=== PATIENT | female | born 1955 | race Caucasian/White ===

== ENCOUNTER 2017-02-21 10:08 | Inpatient (IN) ==
[2017-02-21] MEDS ORDERED: SODIUM CHLORIDE 0.9% 2,000 ML IV STA (10:33)
[2017-02-21] MEDS ORDERED: ONDANSETRON 4 MG/2 ML VIAL IV STA (10:33)
[2017-02-21] MEDS ORDERED: PANTOPRAZOLE INJ 80 MG in SODIUM CHLORIDE 0.9% 100 ML IV STA (10:33)
[2017-02-21 10:56] LABS: Basophils % 0.1 % (0.0-0.8); Eosinophils # 0.1 10*3/uL (0.0-0.87); Eosinophils % 0.9 % (0.00-10.9); Hematocrit 21.3 VOL% (35.7-47.0); Immature Granulocytes % 0.9 %; Immature Granulocytes Absolute 0.08 #; Lymphocytes # 1.7 10*3/uL (1.4-4.0); Lymphocytes % 19.6 % (21.3-54.2); Mean Corpuscular HGB Conc 32.9 GM/DL (32-36); Mean Corpuscular Hemoglobin 28 PG (27-34); Mean Corpuscular Volume 85.5 FL (87-102); Mean Platelet Volume 10.3 FL (9.6-12.0); Monocytes # 0.5 10*3/uL (0.11-0.8); Monocytes % 5.4 % (1.7-12.7); NRBC # 0.05 10*3/uL; Neutrophils # 6.4 10*3/uL (1.4-7.4); Neutrophils % 73.1 % (38.7-73.9); Platelet Count 298 T/CUMM (130-400); Red Blood Count 2.49 MC/CUMM (3.8-5.5); Red Cell Distribution Width 15.4 % (9.3-17.3); White Blood Count 8.7 T/CUMM (4-12)
[2017-02-21] MEDS ORDERED: SODIUM CHLORIDE 0.9% 1,000 ML IV PRN (11:02)
[2017-02-21] MEDS ORDERED: PANTOPRAZOLE 40 MG VIAL IV ONE (11:15)
[2017-02-21] MEDS ORDERED: ONDANSETRON 4 MG/2 ML VIAL ONE (11:16)
[2017-02-21 11:19] LABS: Band Neutrophils 2 % (0-10); Hypochromasia 2+; Lymphocytes 22 % (20-55); Macrocytosis 1+; Platelet Estimate Adequate; Polychromasia Slight; Segmented Neutrophils 75 % (50-85); Target Cells Slight; Total Cells Counted 100
[2017-02-21 11:30] LABS: Albumin 3.2 G/DL (3.4-5.0); Bilirubin,Total 0.4 MG/DL (0.2-1.0); Calcium 8.1 MG/DL (8.5-10.1); Osmolality,Calculated 275.1 MOS/KG (273-304); Potassium 3.4 MMOL/L (3.5-5.1); Total Protein 6.2 G/DL (6.4-8.3)
[2017-02-21] MEDS ORDERED: ONDANSETRON 4 MG/2 ML VIAL IV PRN (12:15)
[2017-02-21] MEDS ORDERED: LIDOCAINE 2% 5 ML VIAL ONE (13:17)
[2017-02-21] MEDS ORDERED: PROPOFOL 200 MG/20 ML VIAL IV ONE (13:17)
[2017-02-21] MEDS: SODIUM CHLORIDE 0.9% 1,000 ML IV SCH ×2 (15:00→22:17)
[2017-02-21] MEDS: PANTOPRAZOLE INJ 200 MG in SODIUM CHLORIDE 0.9% 250 ML IV SCH (17:23)
[2017-02-21 19:30] LABS: Hematocrit 25.6 VOL% (35.7-47.0); Hemoglobin 8.5 GM/DL (12.0-16.0)
[2017-02-21] MEDS: DOCUSATE SODIUM 100 MG CAPSULE PO SCH (21:15)
[2017-02-21] MEDS: ACETAMINOPHEN 325 MG TABLET PO PRN (21:16)
[2017-02-22 01:50] LABS: Basophils % 0.1 % (0.0-0.8); Eosinophils % 0.3 % (0.00-10.9); Hematocrit 24.1 VOL% (35.7-47.0); Immature Granulocytes % 0.6 %; Immature Granulocytes Absolute 0.06 #; Lymphocytes # 1.5 10*3/uL (1.4-4.0); Lymphocytes % 15.9 % (21.3-54.2); Mean Corpuscular HGB Conc 33.2 GM/DL (32-36); Mean Corpuscular Hemoglobin 29 PG (27-34); Mean Corpuscular Volume 86.7 FL (87-102); Monocytes # 0.5 10*3/uL (0.11-0.8); NRBC # 0.03 10*3/uL; Neutrophils # 7.5 10*3/uL (1.4-7.4); Neutrophils % 78.1 % (38.7-73.9); Platelet Count 200 T/CUMM (130-400); Red Blood Count 2.78 MC/CUMM (3.8-5.5); Red Cell Distribution Width 15.8 % (9.3-17.3); White Blood Count 9.6 T/CUMM (4-12)
[2017-02-22 02:08] LABS: Calcium 7.5 MG/DL (8.5-10.1); Osmolality,Calculated 280.4 MOS/KG (273-304); Potassium 4.1 MMOL/L (3.5-5.1)
[2017-02-22] MEDS: SODIUM CHLORIDE 0.9% 1,000 ML IV SCH ×3 (06:14→22:28)
[2017-02-22 07:45] LABS: Hematocrit 24.1 VOL% (35.7-47.0); Hemoglobin 7.9 GM/DL (12.0-16.0)
[2017-02-22] MEDS: DOCUSATE SODIUM 100 MG CAPSULE PO SCH ×2 (08:37→21:14)
[2017-02-22] MEDS: ACETAMINOPHEN 325 MG TABLET PO PRN ×3 (08:49→20:01)
[2017-02-22] MEDS: VENLAFAXINE 75 MG TABLET PO SCH (08:51)
[2017-02-22] MEDS ORDERED: SODIUM CHLORIDE 0.9% 1,000 ML IV PRN (12:38)
[2017-02-22] MEDS: PANTOPRAZOLE INJ 200 MG in SODIUM CHLORIDE 0.9% 250 ML IV SCH ×2 (18:57→22:30)
[2017-02-23 01:13] LABS: Hematocrit 27.9 VOL% (35.7-47.0); Hemoglobin 9.4 GM/DL (12.0-16.0)
[2017-02-23] MEDS: SODIUM CHLORIDE 0.9% 1,000 ML IV SCH (04:19)
[2017-02-23 05:51] LABS: Basophils % 0.1 % (0.0-0.8); Eosinophils # 0.1 10*3/uL (0.0-0.87); Eosinophils % 0.8 % (0.00-10.9); Hematocrit 29.9 VOL% (35.7-47.0); Hemoglobin 9.9 GM/DL (12.0-16.0); Immature Granulocytes % 0.7 %; Lymphocytes # 1.2 10*3/uL (1.4-4.0); Lymphocytes % 7.8 % (21.3-54.2); Mean Corpuscular HGB Conc 33.1 GM/DL (32-36); Mean Corpuscular Hemoglobin 29 PG (27-34); Mean Corpuscular Volume 86.4 FL (87-102); Mean Platelet Volume 10.8 FL (9.6-12.0); Monocytes # 1.1 10*3/uL (0.11-0.8); Monocytes % 7.5 % (1.7-12.7); NRBC # 0.02 10*3/uL; Neutrophils # 12.2 10*3/uL (1.4-7.4); Neutrophils % 83.1 % (38.7-73.9); Platelet Count 207 T/CUMM (130-400); Red Blood Count 3.46 MC/CUMM (3.8-5.5); White Blood Count 14.7 T/CUMM (4-12)
[2017-02-23] MEDS: VENLAFAXINE 75 MG TABLET PO SCH (08:51)
[2017-02-23] MEDS: DOCUSATE SODIUM 100 MG CAPSULE PO SCH ×2 (08:53→20:40)
[2017-02-23] MEDS: ACETAMINOPHEN 325 MG TABLET PO PRN ×2 (12:01→21:03)
[2017-02-23] MEDS ORDERED: MAGNESIUM CITRATE 300 ML BOTTLE PO ONE (12:40)
[2017-02-23 17:19] LABS: Hematocrit 29.7 VOL% (35.7-47.0); Hemoglobin 9.6 GM/DL (12.0-16.0)
[2017-02-23 23:50] LABS: Hematocrit 28.7 VOL% (35.7-47.0); Hemoglobin 9.3 GM/DL (12.0-16.0)
[2017-02-24] MEDS: SODIUM CHLORIDE 0.9% 1,000 ML IV SCH ×2 (01:30→16:53)
[2017-02-24] MEDS: PANTOPRAZOLE INJ 200 MG in SODIUM CHLORIDE 0.9% 250 ML IV SCH (02:50)
[2017-02-24 05:57] LABS: Basophils % 0.2 % (0.0-0.8); Eosinophils # 0.2 10*3/uL (0.0-0.87); Eosinophils % 1.6 % (0.00-10.9); Hematocrit 28.9 VOL% (35.7-47.0); Hemoglobin 9.4 GM/DL (12.0-16.0); Immature Granulocytes % 0.8 %; Mean Corpuscular HGB Conc 32.5 GM/DL (32-36); Mean Corpuscular Hemoglobin 29 PG (27-34); Mean Corpuscular Volume 88.1 FL (87-102); Mean Platelet Volume 10.3 FL (9.6-12.0); Monocytes # 0.7 10*3/uL (0.11-0.8); Monocytes % 5.1 % (1.7-12.7); Neutrophils # 10.9 10*3/uL (1.4-7.4); Neutrophils % 84.3 % (38.7-73.9); Platelet Count 234 T/CUMM (130-400); Red Blood Count 3.28 MC/CUMM (3.8-5.5); Red Cell Distribution Width 15.8 % (9.3-17.3); White Blood Count 12.9 T/CUMM (4-12)
[2017-02-24 06:22] LABS: Calcium 7.4 MG/DL (8.5-10.1); Osmolality,Calculated 278.3 MOS/KG (273-304); Potassium 3.2 MMOL/L (3.5-5.1)
[2017-02-24] MEDS ORDERED: INFLUENZA VIRUS VACCINE 0.5 ML SYRINGE IM ONE (09:00)
[2017-02-24] MEDS ORDERED: PNEUMOCOCCAL VACCINE (13 VALENT) 0.5 ML SYRINGE IM ONE (09:00)
[2017-02-24] MEDS: VENLAFAXINE 75 MG TABLET PO SCH (10:01)
[2017-02-24] MEDS: DOCUSATE SODIUM 100 MG CAPSULE PO SCH ×2 (10:01→21:10)
[2017-02-24 10:13] LABS: Hematocrit 28.1 VOL% (35.7-47.0); Hemoglobin 9.1 GM/DL (12.0-16.0)
[2017-02-24 16:31] LABS: Hematocrit 28.4 VOL% (35.7-47.0); Hemoglobin 9.2 GM/DL (12.0-16.0)
[2017-02-24] MEDS: ACETAMINOPHEN 325 MG TABLET PO PRN ×2 (16:55→22:15)
[2017-02-24] MEDS: PANTOPRAZOLE 40 MG TABLET PO SCH (21:09)
[2017-02-24 23:31] LABS: Hematocrit 28.2 VOL% (35.7-47.0); Hemoglobin 8.9 GM/DL (12.0-16.0)
[2017-02-25 05:53] LABS: Hematocrit 28.2 VOL% (35.7-47.0); Hemoglobin 9.2 GM/DL (12.0-16.0)
[2017-02-25 07:20] LABS: Basophils % 0.1 % (0.0-0.8); Eosinophils # 0.1 10*3/uL (0.0-0.87); Eosinophils % 0.9 % (0.00-10.9); Hematocrit 29.2 VOL% (35.7-47.0); Hemoglobin 9.3 GM/DL (12.0-16.0); Immature Granulocytes Absolute 0.16 #; Lymphocytes # 1.1 10*3/uL (1.4-4.0); Lymphocytes % 6.7 % (21.3-54.2); Mean Corpuscular HGB Conc 31.8 GM/DL (32-36); Mean Corpuscular Hemoglobin 28 PG (27-34); Mean Corpuscular Volume 88.5 FL (87-102); Mean Platelet Volume 9.8 FL (9.6-12.0); Monocytes # 1.2 10*3/uL (0.11-0.8); Monocytes % 7.8 % (1.7-12.7); Neutrophils # 13.3 10*3/uL (1.4-7.4); Neutrophils % 83.5 % (38.7-73.9); Platelet Count 323 T/CUMM (130-400); Red Cell Distribution Width 15.7 % (9.3-17.3)
[2017-02-25] MEDS ORDERED: LEVOFLOXACIN INJ 500 MG in PREMIX 1 EACH IV SCH (08:00)
[2017-02-25] MEDS ORDERED: PANTOPRAZOLE 40 MG VIAL IV SCH (09:00)
[2017-02-25] MEDS: SODIUM CHLORIDE 0.9% 1,000 ML IV SCH (09:05)
[2017-02-25] MEDS: VENLAFAXINE 75 MG TABLET PO SCH (09:07)
[2017-02-25] MEDS: DOCUSATE SODIUM 100 MG CAPSULE PO SCH (09:08)
[2017-02-25] MEDS: PANTOPRAZOLE 40 MG TABLET PO SCH (09:10)
[2017-02-25 11:04] LABS: Hematocrit 28.3 VOL% (35.7-47.0); Hemoglobin 9.3 GM/DL (12.0-16.0)
[2017-02-25 12:06] VITALS: BP 143/77
== END 2017-02-25 14:45 | disposition home or self-care (01) | DRG 377 ==
LOC: N.ED 10:08 → N.EDINP 12:15 → N.ICU 14:42 → N.2E 02-23 16:42
PROVIDERS: ADMIT Family Medicine; ATTEND Family Medicine

== ENCOUNTER 2017-03-03 15:13 | Inpatient (IN) ==
[2017-03-03 15:46] LABS: Basophils % 0.3 % (0.0-0.8); Eosinophils # 0.1 10*3/uL (0.0-0.87); Eosinophils % 1.2 % (0.00-10.9); Hematocrit 22.4 VOL% (35.7-47.0); Hemoglobin 7.1 GM/DL (12.0-16.0); Immature Granulocytes Absolute 0.11 #; Lymphocytes # 2.3 10*3/uL (1.4-4.0); Lymphocytes % 21.4 % (21.3-54.2); Mean Corpuscular HGB Conc 31.7 GM/DL (32-36); Mean Corpuscular Hemoglobin 28 PG (27-34); Mean Corpuscular Volume 87.8 FL (87-102); Monocytes # 0.6 10*3/uL (0.11-0.8); Monocytes % 5.5 % (1.7-12.7); NRBC # 0.04 10*3/uL; Neutrophils # 7.7 10*3/uL (1.4-7.4); Neutrophils % 70.6 % (38.7-73.9); Platelet Count 591 T/CUMM (130-400); Red Blood Count 2.55 MC/CUMM (3.8-5.5); Red Cell Distribution Width 15.5 % (9.3-17.3); White Blood Count 10.9 T/CUMM (4-12)
[2017-03-03 15:53] LABS: INR 0.9
[2017-03-03 16:16] LABS: Albumin 2.9 G/DL (3.4-5.0); Bilirubin,Total 0.6 MG/DL (0.2-1.0); Calcium 8.4 MG/DL (8.5-10.1); Osmolality,Calculated 278.7 MOS/KG (273-304); Potassium 3.5 MMOL/L (3.5-5.1); Total Protein 6.8 G/DL (6.4-8.3)
[2017-03-03] MEDS ORDERED: SODIUM CHLORIDE 0.9% 1,000 ML IV PRN ×2 (17:08→17:18)
[2017-03-03] MEDS ORDERED: ACETAMINOPHEN 325 MG TABLET PO PRN (17:12)
[2017-03-03] MEDS ORDERED: ONDANSETRON 4 MG/2 ML VIAL IV PRN (17:12)
[2017-03-04 00:33] LABS: Hematocrit 27.3 VOL% (35.7-47.0)
[2017-03-04 06:25] LABS: Hematocrit 27.3 VOL% (35.7-47.0)
[2017-03-04 06:45] LABS: Hemoglobin 9.2 GM/DL (12.0-16.0)
[2017-03-04] MEDS ORDERED: PANTOPRAZOLE 40 MG VIAL IV ONE (10:03)
[2017-03-04] MEDS: PANTOPRAZOLE 40 MG VIAL IV SCH (10:06)
[2017-03-04] MEDS ORDERED: BISACODYL 5 MG TABLET PO ONE (12:00)
[2017-03-04] MEDS ORDERED: POLYETHYLENE GLYCOL POWDER 255 GM BOTTLE PO ONE (13:00)
[2017-03-04] MEDS ORDERED: MAGNESIUM CITRATE 300 ML BOTTLE PO ONE (21:00)
[2017-03-05] MEDS: PANTOPRAZOLE 40 MG VIAL IV SCH (08:43)
[2017-03-05] MEDS ORDERED: LIDOCAINE 1% 5 ML VIAL ONE (10:40)
[2017-03-05] MEDS ORDERED: PROPOFOL 200 MG/20 ML VIAL IV ONE (10:40)
[2017-03-05] MEDS ORDERED: IRON DEXTRAN IV ONE (11:22)
[2017-03-05] MEDS ORDERED: IRON DEXTRAN 25 MG in SYRINGE 1 EACH IV ONE (11:22)
[2017-03-05] MEDS ORDERED: SODIUM CHLORIDE 0.9% IV ONE (11:22)
[2017-03-05] MEDS ORDERED: IRON DEXTRAN 1,000 MG in SODIUM CHLORIDE 0.9% 500 ML IV ONE (11:31)
[2017-03-06 09:22] LABS: Hematocrit 33.2 VOL% (35.7-47.0); Hemoglobin 10.7 GM/DL (12.0-16.0)
[2017-03-06] MEDS: VENLAFAXINE 37.5 MG TABLET PO SCH (10:09)
[2017-03-06] MEDS: PANTOPRAZOLE 40 MG TABLET PO SCH ×2 (10:09→20:42)
[2017-03-07 08:47] VITALS: BP 142/77
[2017-03-07] MEDS: VENLAFAXINE 37.5 MG TABLET PO SCH (09:26)
[2017-03-07] MEDS: PANTOPRAZOLE 40 MG TABLET PO SCH (09:26)
== END 2017-03-07 11:29 | disposition home or self-care (01) | DRG 378 ==
LOC: N.ED 15:13 → N.EDINP 19:39 → N.5E 03-04 10:45
PROVIDERS: ADMIT Family Medicine; ATTEND Family Medicine

== ENCOUNTER 2020-01-25 21:38 | Observation (INO) ==
[2020-01-25] MEDS ORDERED: HYDROmorphone 2 MG/1 ML VIAL IV STA (22:06)
[2020-01-25] MEDS ORDERED: ONDANSETRON 4 MG/2 ML VIAL IV STA (22:06)
[2020-01-25] MEDS ORDERED: SODIUM CHLORIDE 0.9% 500 ML IV STA (22:06)
[2020-01-25] MEDS ORDERED: PANTOPRAZOLE 40 MG VIAL IV STA (22:06)
[2020-01-25] MEDS ORDERED: ALUM/MAG/SIMETH/LIDO VISC 1:1 30 ML BOTTLE PO STA (22:06)
[2020-01-25 22:39] LABS: Basophils % 0.3 % (0.0-0.8); Eosinophils # 0.1 10*3/uL (0.0-0.87); Eosinophils % 0.5 % (0.00-10.9); Hemoglobin 13.8 GM/DL (12.0-16.0); Immature Granulocytes % 0.6 %; Immature Granulocytes Absolute 0.09 #; Lymphocytes # 1.1 10*3/uL (1.4-4.0); Lymphocytes % 6.9 % (21.3-54.2); Mean Corpuscular HGB Conc 34.5 GM/DL (32-36); Mean Corpuscular Volume 89.7 FL (87-102); Mean Platelet Volume 8.9 FL (9.6-12.0); Monocytes % 3.7 % (1.7-12.7); Platelet Count 325 T/CUMM (130-400); Red Blood Count 4.46 MC/CUMM (3.8-5.5); Red Cell Distribution Width 12.2 % (9.3-17.3); White Blood Count 15.3 T/CUMM (4-12)
[2020-01-25 22:53] LABS: Alanine Aminotransferase 20 U/L (13-56); Albumin 3.7 G/DL (3.4-5.0); Alkaline Phosphatase 96 U/L (45-117); Amylase 59 U/L (25-115); Aspartate Amino Transferase 13 U/L (0-37); Blood Urea Nitrogen 21 MG/DL (7-18); Calcium 9.4 MG/DL (8.5-10.1); Estimated Glom Filtration Rate 59 ML/MIN; Glucose 136 MG/DL (74-106); Osmolality,Calculated 279.7 MOS/KG (273-304); Total Protein 7.9 G/DL (6.4-8.3)
[2020-01-25 23:02] LABS: Bilirubin,Urine Negative (Negative); Blood, Urine Negative (Negative); Glucose,Urine (UA) Negative (Negative); Ketones,Urine Negative (Negative); Mucus,Urine Occasional /LPF (Occasional); Nitrite,Urine Negative (Negative); Protein,Urine Negative; RBC,Urine 2 /HPF (0-4); Squamous Epithelial Cell,Urine Occasional /HPF (0-10); Urine Appearance CLEAR (Clear); Urine Color Yellow (Yellow); Urine Specific Gravity 1.019 (1.001-1.035); Urine Urobilinogen < 2.0 EU/DL (0.2-1.0); WBC,Urine 5 /HPF (0-6)
[2020-01-25] MEDS ORDERED: POTASSIUM CHLORIDE 20 MEQ TABLET PO STA (23:21)
[2020-01-26] MEDS: HYDROmorphone 2 MG/1 ML VIAL IV PRN ×3 (01:27→10:52)
[2020-01-26] MEDS: SODIUM CHLORIDE 0.9% 1,000 ML IV SCH ×5 (01:35→23:25)
[2020-01-26 07:26] LABS: Basophils % 0.2 % (0.0-0.8); Eosinophils # 0.2 10*3/uL (0.0-0.87); Eosinophils % 1.3 % (0.00-10.9); Hematocrit 38.9 VOL% (35.7-47.0); Hemoglobin 13.4 GM/DL (12.0-16.0); Immature Granulocytes % 0.2 %; Immature Granulocytes Absolute 0.03 #; Lymphocytes # 1.5 10*3/uL (1.4-4.0); Lymphocytes % 12.6 % (21.3-54.2); Mean Corpuscular HGB Conc 34.4 GM/DL (32-36); Mean Platelet Volume 8.9 FL (9.6-12.0); Monocytes % 7.7 % (1.7-12.7); Platelet Count 289 T/CUMM (130-400); Red Blood Count 4.37 MC/CUMM (3.8-5.5); Red Cell Distribution Width 12.2 % (9.3-17.3); White Blood Count 12.2 T/CUMM (4-12)
[2020-01-26 07:50] LABS: Albumin 3.3 G/DL (3.4-5.0); Bilirubin,Total 0.8 MG/DL (0.2-1.0); Calcium 8.7 MG/DL (8.5-10.1); Osmolality,Calculated 275.7 MOS/KG (273-304); Total Protein 7.2 G/DL (6.4-8.3)
[2020-01-26] MEDS: FERROUS SULFATE 325 MG TABLET PO SCH (08:00)
[2020-01-26] MEDS: CHLORTHALIDONE 25 MG TABLET PO SCH (09:00)
[2020-01-26] MEDS: FLUoxetine 20 MG CAPSULE PO SCH (09:00)
[2020-01-26] MEDS: DOCUSATE SODIUM 100 MG CAPSULE PO SCH ×2 (09:00→20:36)
[2020-01-26] MEDS: ASPIRIN EC 81 MG TABLET PO SCH (09:00)
[2020-01-26] MEDS: VENLAFAXINE 37.5 MG TABLET PO SCH (09:00)
[2020-01-26] MEDS: PANTOPRAZOLE 40 MG VIAL IV SCH (10:23)
[2020-01-26] MEDS ORDERED: LEVOFLOXACIN INJ 500 MG in PREMIX 1 EACH IV ONE (10:31)
[2020-01-26] MEDS ORDERED: metroNIDAZOLE INJ 500 MG in PREMIX 1 EACH IV ONE (10:31)
[2020-01-26] MEDS ORDERED: INDOCYANINE GREEN 25 MG VIAL IV ONE (10:31)
[2020-01-26] MEDS: ONDANSETRON 4 MG/2 ML VIAL IV PRN (10:55)
[2020-01-26] MEDS ORDERED: BUPIVACAINE MPF 0.25% 30 ML VIAL ONE (11:32)
[2020-01-26] MEDS ORDERED: TISSUE ADHESIVE 1 EACH APPLICATOR TOP ONE (11:32)
[2020-01-26] MEDS ORDERED: LIDOCAINE 1%/EPI INJ 20 ML VIAL ONE (11:32)
[2020-01-26] MEDS ORDERED: fentaNYL 100 MCG/2 ML VIAL ONE (12:15)
[2020-01-26] MEDS ORDERED: MIDAZOLAM 2 MG/2 ML VIAL ONE (12:15)
[2020-01-26] MEDS ORDERED: ePHEDrine 50 MG/ML VIAL ONE (12:37)
[2020-01-26] MEDS ORDERED: LIDOCAINE 2% 5 ML VIAL ONE (12:44)
[2020-01-26] MEDS ORDERED: propofoL 200 MG/20 ML VIAL IV ONE (12:44)
[2020-01-26] MEDS ORDERED: ONDANSETRON 4 MG/2 ML VIAL ONE (12:44)
[2020-01-26] MEDS ORDERED: SEVOFLURANE 1 UNIT/15 MINUTE INH ONE ×4 (12:44→13:12)
[2020-01-26] MEDS ORDERED: ROCURONIUM 50 MG/5 ML VIAL IV ONE (12:44)
[2020-01-26] MEDS ORDERED: PHENYLEPHRINE 1 MG/10 ML SYRINGE IV ONE ×2 (12:45→13:09)
[2020-01-26] MEDS ORDERED: ACETAMINOPHEN 1,000 MG/100 ML VIAL IV ONE (12:59)
[2020-01-26] MEDS ORDERED: GLYCOPYRROLATE 0.4 MG/2 ML VIAL ONE (13:01)
[2020-01-26] MEDS ORDERED: NEOSTIGMINE 10 MG/10 ML VIAL ONE (13:01)
[2020-01-26] MEDS ORDERED: ONDANSETRON 4 MG/2 ML VIAL IV ONE (13:47)
[2020-01-27] MEDS ORDERED: PHENOL 1.4% THROAT SPRAY 177 ML BOTTLE PO PRN (01:10)
[2020-01-27] MEDS: ACETAMINOPHEN 325 MG TABLET PO PRN ×2 (03:59→11:58)
[2020-01-27] MEDS: ONDANSETRON 4 MG/2 ML VIAL IV PRN (04:00)
[2020-01-27] MEDS: HYDROmorphone 2 MG/1 ML VIAL IV PRN (04:03)
[2020-01-27] MEDS: SODIUM CHLORIDE 0.9% 1,000 ML IV SCH (07:58)
[2020-01-27] MEDS: FERROUS SULFATE 325 MG TABLET PO SCH (09:23)
[2020-01-27] MEDS: FLUoxetine 20 MG CAPSULE PO SCH (09:23)
[2020-01-27] MEDS: DOCUSATE SODIUM 100 MG CAPSULE PO SCH (09:23)
[2020-01-27] MEDS: ASPIRIN EC 81 MG TABLET PO SCH (09:23)
[2020-01-27] MEDS: CHLORTHALIDONE 25 MG TABLET PO SCH (09:24)
[2020-01-27] MEDS: VENLAFAXINE 37.5 MG TABLET PO SCH (09:26)
[2020-01-27] MEDS: PANTOPRAZOLE 40 MG VIAL IV SCH (09:28)
[2020-01-27 11:21] VITALS: BP 122/55
== END 2020-01-27 14:20 | disposition home or self-care (01) ==
LOC: N.ED 21:38 → N.EDINP 21:38 → N.3E 01-26 03:22
PROVIDERS: ADMIT Family Medicine; ATTEND Family Medicine

== ENCOUNTER 2020-11-20 10:55 | Observation (INO) ==
[2020-11-20] MEDS ORDERED: HYDROmorphone 2 MG/1 ML VIAL IV PRN ×2 (12:24→16:03)
[2020-11-20] MEDS ORDERED: ONDANSETRON 4 MG/2 ML VIAL IV PRN ×2 (12:24→16:05)
[2020-11-20] MEDS ORDERED: PIPERACILLIN/TAZOBACTAM 3,375 MG in SODIUM CHLORIDE 0.9% 100 ML IV SCH (12:30)
[2020-11-20] MEDS ORDERED: DEXTROSE 5% 1,000 ML IV SCH (12:30)
[2020-11-20] MEDS: ENOXAPARIN 40 MG/0.4 ML SYRINGE SUBCUT SCH (13:05)
[2020-11-20] MEDS: DEXTROSE 5% NACL 0.45% 1,000 ML IV SCH ×2 (13:20→19:05)
[2020-11-20] MEDS ORDERED: DEXTROSE 5% NACL 0.45% 1,000 ML IV SCH (13:30)
[2020-11-20] MEDS: metroNIDAZOLE INJ 500 MG/100 ML PREMIX IV SCH ×2 (14:07→21:40)
[2020-11-20] MEDS: LEVOFLOXACIN INJ 750 MG/150 ML PREMIX IV SCH (15:26)
[2020-11-20] MEDS ORDERED: diphenhydrAMINE CAP 25 MG CAPSULE PO PRN (16:05)
[2020-11-20] MEDS ORDERED: INFLUENZA VIRUS VACCINE 0.5 ML SYRINGE IM ONE (20:18)
[2020-11-20] MEDS: DOCUSATE SODIUM 100 MG CAPSULE PO SCH (22:01)
[2020-11-21 05:13] LABS: Basophils % 0.3 % (0.0-0.8); Hematocrit 38.7 VOL% (35.7-47.0); Hemoglobin 13.1 GM/DL (12.0-16.0); Immature Granulocytes % 0.3 %; Immature Granulocytes Absolute 0.02 #; Lymphocytes # 1.7 10*3/uL (1.4-4.0); Lymphocytes % 23.2 % (21.3-54.2); Mean Corpuscular HGB Conc 33.9 GM/DL (32-36); Mean Corpuscular Volume 91.9 FL (87-102); Mean Platelet Volume 9.1 FL (9.6-12.0); Monocytes % 8.4 % (1.7-12.7); Neutrophils % 53.8 % (38.7-73.9); Platelet Count 305 T/CUMM (130-400); Red Blood Count 4.21 MC/CUMM (3.8-5.5); Red Cell Distribution Width 11.9 % (9.3-17.3); White Blood Count 7.2 T/CUMM (4-12)
[2020-11-21 05:40] LABS: Eosinophils 17 % (0-10); Hypochromasia Slight; Lymphocytes 22 % (20-55); Microcytosis Slight; Platelet Estimate Adequate; Segmented Neutrophils 53 % (50-85); Total Cells Counted 100
[2020-11-21] MEDS: metroNIDAZOLE INJ 500 MG/100 ML PREMIX IV SCH ×3 (05:44→21:35)
[2020-11-21] MEDS: DEXTROSE 5% NACL 0.45% 1,000 ML IV SCH ×3 (05:44→13:16)
[2020-11-21 06:00] LABS: Calcium 9.2 MG/DL (8.5-10.1); Osmolality,Calculated 279.3 MOS/KG (273-304); Potassium 3.7 MMOL/L (3.5-5.1)
[2020-11-21] MEDS ORDERED: ACETAMINOPHEN 325 MG TABLET PO PRN (07:31)
[2020-11-21] MEDS: VENLAFAXINE XR 37.5 MG CAPSULE PO SCH (08:51)
[2020-11-21] MEDS: ASPIRIN EC 81 MG TABLET PO SCH (08:52)
[2020-11-21] MEDS: DOCUSATE SODIUM 100 MG CAPSULE PO SCH ×2 (08:52→20:49)
[2020-11-21] MEDS: PANTOPRAZOLE 40 MG TABLET PO SCH (08:52)
[2020-11-21] MEDS: FERROUS SULFATE 325 MG TABLET PO SCH (08:52)
[2020-11-21] MEDS: CHLORTHALIDONE 25 MG TABLET PO SCH (09:01)
[2020-11-21] MEDS: [UNRECOGNIZED DRUG - OTHER] PO SCH (09:02)
[2020-11-21] MEDS: ENOXAPARIN 40 MG/0.4 ML SYRINGE SUBCUT SCH (11:54)
[2020-11-21] MEDS: LEVOFLOXACIN INJ 750 MG/150 ML PREMIX IV SCH (14:31)
[2020-11-21] MEDS ORDERED: ZALEPLON 5 MG CAPSULE PO PRN (19:24)
[2020-11-22] MEDS: DEXTROSE 5% NACL 0.45% 1,000 ML IV SCH ×3 (01:24→12:54)
[2020-11-22] MEDS: metroNIDAZOLE INJ 500 MG/100 ML PREMIX IV SCH ×3 (05:45→21:24)
[2020-11-22] MEDS: ASPIRIN EC 81 MG TABLET PO SCH (09:08)
[2020-11-22] MEDS: FERROUS SULFATE 325 MG TABLET PO SCH (09:08)
[2020-11-22] MEDS: PANTOPRAZOLE 40 MG TABLET PO SCH (09:08)
[2020-11-22] MEDS: VENLAFAXINE XR 37.5 MG CAPSULE PO SCH (09:08)
[2020-11-22] MEDS: DOCUSATE SODIUM 100 MG CAPSULE PO SCH ×2 (09:08→21:24)
[2020-11-22] MEDS: CHLORTHALIDONE 25 MG TABLET PO SCH (09:08)
[2020-11-22] MEDS: [UNRECOGNIZED DRUG - OTHER] PO SCH (09:09)
[2020-11-22] MEDS: ENOXAPARIN 40 MG/0.4 ML SYRINGE SUBCUT SCH (12:53)
[2020-11-22] MEDS: LEVOFLOXACIN INJ 750 MG/150 ML PREMIX IV SCH (14:28)
[2020-11-23] MEDS: DEXTROSE 5% NACL 0.45% 1,000 ML IV SCH ×2 (04:27→05:59)
[2020-11-23 05:55] LABS: Basophils % 0.3 % (0.0-0.8); Eosinophils % 15.6 % (0.00-10.9); Hematocrit 35.3 VOL% (35.7-47.0); Hemoglobin 11.6 GM/DL (12.0-16.0); Immature Granulocytes % 0.6 %; Immature Granulocytes Absolute 0.04 #; Lymphocytes # 1.4 10*3/uL (1.4-4.0); Lymphocytes % 21.6 % (21.3-54.2); Mean Corpuscular HGB Conc 32.9 GM/DL (32-36); Mean Corpuscular Volume 91.9 FL (87-102); Mean Platelet Volume 9.1 FL (9.6-12.0); Monocytes % 7.2 % (1.7-12.7); Neutrophils % 54.7 % (38.7-73.9); Platelet Count 277 T/CUMM (130-400); Red Blood Count 3.84 MC/CUMM (3.8-5.5); Red Cell Distribution Width 11.9 % (9.3-17.3); White Blood Count 6.7 T/CUMM (4-12)
[2020-11-23] MEDS: metroNIDAZOLE INJ 500 MG/100 ML PREMIX IV SCH (05:58)
[2020-11-23 06:22] LABS: Calcium 8.9 MG/DL (8.5-10.1); Potassium 3.1 MMOL/L (3.5-5.1)
[2020-11-23 07:01] LABS: Sedimentation Rate-Westergren 80 MM/HR (0-30)
[2020-11-23] MEDS ORDERED: LEVOFLOXACIN 750 MG TABLET PO SCH (08:00)
[2020-11-23 08:10] VITALS: BP 132/71
[2020-11-23] MEDS: PANTOPRAZOLE 40 MG TABLET PO SCH (08:54)
[2020-11-23] MEDS: VENLAFAXINE XR 37.5 MG CAPSULE PO SCH (08:54)
[2020-11-23] MEDS: ASPIRIN EC 81 MG TABLET PO SCH (08:55)
[2020-11-23] MEDS: CHLORTHALIDONE 25 MG TABLET PO SCH (08:55)
[2020-11-23] MEDS: DOCUSATE SODIUM 100 MG CAPSULE PO SCH (08:55)
[2020-11-23] MEDS ORDERED: POTASSIUM CHLORIDE 10 MEQ TABLET PO SCH (09:00)
[2020-11-23 11:10] LABS: Eosinophils 15 % (0-10); Lymphocytes 30 % (20-55); Microcytosis 1+; Ovalocytes Slight; Segmented Neutrophils 49 % (50-85); Total Cells Counted 100
[2020-11-23 11:11] LABS: Platelet Estimate Normal
[2020-11-23] MEDS ORDERED: metroNIDAZOLE 500 MG TABLET PO SCH (12:00)
== END 2020-11-23 10:39 | disposition home or self-care (01) ==
LOC: N.EDINP 10:55 → N.ED 10:55 → N.3E 19:39
PROVIDERS: ADMIT Family Medicine; ATTEND Family Medicine